=== PATIENT | female | born 1975 | race Caucasian/White ===

== ENCOUNTER 2017-12-25 12:34 | Emergency (ER) | payer OTHER ==
[~2017-12-25] VITALS: Ht 162.6 cm; Wt 89.4 kg
[2017-12-25] MEDS ORDERED: IV NORMAL SALINE 1,000ML 1,000 ML IV ONE (13:00)
[2017-12-25] MEDS ORDERED: ONDANSETRON PF 4 MG/2 ML VIAL. IV ONE (13:00)
[2017-12-25] MEDS ORDERED: MORPHINE SULFATE 4 MG/ML DISP.SYRIN. IV ONE ×2 (13:00→14:55)
[2017-12-25] MEDS ORDERED: DIPHTH,PERTUSS(ACELL),TET TOX 0.5 ML DISP.SYRIN. VAX IM ONE (13:00)
[2017-12-25] MEDS ORDERED: IOHEXOL 300 MG/ML 75 ML VIAL. IV ONE (13:00)
[2017-12-25 13:09] LABS: BASO # 0.1 x10^3/uL (0.0-0.2); BASO % 1 % (0-3); EOS # 0.1 x10^3/uL (0.0-0.7); EOS % 1 % (0-3); HEMATOCRIT 42.6 % (36.0-47.0); LYMPH # 1.4 x10^3/uL (1.0-4.8); LYMPH % 21 % (24-48); MEAN CORPUSCULAR HEMOGLOBIN 25 pg (25-35); MEAN CORPUSCULAR HGB CONC 33 g/dL (31-37); MEAN CORPUSCULAR VOLUME 76 fL (79-100); MONO # 0.5 x10^3/uL (0.0-1.1); MONO % 8 % (0-9); NEUT # 4.7 x10^3uL (1.8-7.7); NEUT % 70 % (31-73); PLATELET COUNT 258 x10^3/uL (140-400); WHITE BLOOD COUNT 6.8 x10^3/uL (4.0-11.0)
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
[2017-12-25 13:20] LABS: CALCIUM 9.3 mg/dL (8.5-10.1); CREATININE 0.9 mg/dL (0.6-1.0); POTASSIUM 3.6 mmol/L (3.5-5.1); TOTAL BILIRUBIN 0.2 mg/dL (0.2-1.0); TOTAL PROTEIN 8.1 g/dL (6.4-8.2)
--- NOTE | 2017-12-25 13:50 | RAD ---
CT abdomen and pelvis with contrast History: [facility] today, abdominal pain Technique: After the administration of intravenous contrast, CT imaging was performed of the abdomen and pelvis. No oral contrast was given as per request. Multiplanar images are reviewed. Exposure: One or more of the following individualized dose reduction techniques were utilized for this examination: 1. Automated exposure control 2. Adjustment of the mA and/or kV according to patient size 3. Use of iterative reconstruction technique. Contrast: 75 cc Omnipaque 300 Comparison: 04/08/2004 Findings: There is mild motion. There is no significant abnormality of the visualized lung bases. There is no significant abnormality of the liver, spleen, pancreas, adrenal glands. Both kidneys enhance without hydronephrosis. There again has been cholecystectomy. Accurate evaluation of bowel is limited without oral contrast. There is no significant inflammatory change adjacent to the bowel. There is no evidence of bowel obstruction, free fluid, or free air. There is retained stool in the colon. There is fecalization of the distal small bowel. Appendix is not confidently identified if still present. There is some distention of urinary bladder. There is mild left pelviectasis, also very mild right hydronephrosis. Ureters are not significantly dilated. There is very mild lumbar levoscoliosis. Lumbar vertebral body stature and AP alignment are maintained. Impression: 1. There is some distention of urinary bladder, mild right hydronephrosis and mild left pelviectasis. Ureters are not dilated. 2. There is retained stool in the colon, also some fecalization distal small bowel. Appendix is not identified if still present. Electronically signed by: Joey Michele MD (12/25/2017 1:46 PM) [id number]
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
[2017-12-25] MEDS ORDERED: diazePAM 2 MG TABLET PO ONE (14:55)
[2017-12-25 14:59] LABS: BILIRUBIN,URINE NEG (NEG); CLARITY,URINE HAZY; COLOR,URINE YELLOW; GLUCOSE,URINE NEG (NEG); NITRITE,URINE NEG (NEG); RBC,URINE OCC /HPF (0-2); UROBILINOGEN,URINE 0.2 mg/dL (0.2 mg/dL)
[2017-12-25 15:00] LABS: BACTERIA,URINE FEW /HPF (0-FEW); SQUAMOUS EPITHELIAL CELL,UR MOD /LPF; U PREG PATIENT NEGATIVE (NEG)
[2017-12-25] MEDS ORDERED: HYDR-971 PO (15:12)
[2017-12-25] MEDS ORDERED: DIAZ2TAB PO (15:12)
[2017-12-25 15:16] VITALS: BP 148/78
== END 2017-12-25 15:29 | disposition home or self-care (01) ==
LOC: ER 12:34
DX: S30.1XXA Contusion of abdominal wall, initial encounter (principal); S89.92XA Unspecified injury of left lower leg, initial encounter; S89.91XA Unspecified injury of right lower leg, initial encounter; M54.6 Pain in thoracic spine; R07.89 Other chest pain; M19.90 Unspecified osteoarthritis, unspecified site; I10 Essential (primary) hypertension; Z88.1 Allergy status to other antibiotic agents; V49.49XA Driver injured in collision with other motor vehicles in traffic accident, initial encounter; Y93.I9 Activity, other involving external motion; Y99.8 Other external cause status; Y92.488 Other paved roadways as the place of occurrence of the external cause
CPT/HCPCS: 36415; 71045; 73590; 74177; 80053; 81001; 81025; 83690; 85025; 96374; 96375; 99285; J2270; J2405; Q9967; J7030

== ENCOUNTER → 2018-01-02 | Outpatient (CLI) | payer OTHER ==
[2017-12-25 15:16] VITALS: BP 148/78
[~2018-01-02] MED LIST: DIAZ2TAB PO; HYDR-971 PO; IOHEXOL 240 MG/ML 50ML VIAL. ONE; IOHEXOL 300 MG/ML 75 ML VIAL. IV ONE
[2018-01-02 15:12] LABS: BASO % 0 % (0-3); EOS % 0 % (0-3); HEMATOCRIT 44.2 % (36.0-47.0); HEMOGLOBIN 14.6 g/dL (12.0-15.5); LYMPH # 0.9 x10^3/uL (1.0-4.8); LYMPH % 10 % (24-48); MEAN CORPUSCULAR HEMOGLOBIN 25 pg (25-35); MEAN CORPUSCULAR HGB CONC 33 g/dL (31-37); MEAN CORPUSCULAR VOLUME 77 fL (79-100); MONO # 0.6 x10^3/uL (0.0-1.1); MONO % 6 % (0-9); NEUT # 8.3 x10^3uL (1.8-7.7); NEUT % 84 % (31-73); PLATELET COUNT 306 x10^3/uL (140-400); RED BLOOD COUNT 5.75 x10^6/uL (3.50-5.40); RED CELL DISTRIBUTION WIDTH 19.7 % (11.5-14.5); WHITE BLOOD COUNT 9.9 x10^3/uL (4.0-11.0)
[2018-01-02 15:17] LABS: ALBUMIN 4.2 g/dL (3.4-5.0); CALCIUM 9.7 mg/dL (8.5-10.1); CREATININE 0.9 mg/dL (0.6-1.0); TOTAL BILIRUBIN 0.3 mg/dL (0.2-1.0); TOTAL PROTEIN 8.6 g/dL (6.4-8.2)
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
== END | disposition home or self-care (01) ==
LOC: DXRAD 14:27
PROVIDERS: ATTEND Family Medicine
DX: N32.89 Other specified disorders of bladder (principal); I10 Essential (primary) hypertension
CPT/HCPCS: 36415; 74177; 80053; 82550; 85025; Q9966; Q9967